=== PATIENT | female | born 1935 | race Caucasian/White ===

== ENCOUNTER → 2022-11-05 13:25 | Outpatient (BNVA) | payer MEDICARE, SELFPAY | PROVIDERS: Family Provider Family Medicine; PCP Family Medicine; Visit Provider Podiatrist Foot & Ankle Surgery | DX: L84 Corns and callosities (principal) | CPT/HCPCS: 99203 ==

== ENCOUNTER → 2023-08-12 14:20 | Outpatient (BNVA) | payer MEDICARE, SELFPAY | PROVIDERS: Family Provider Family Medicine; PCP Family Medicine; Visit Provider Podiatrist Foot & Ankle Surgery | DX: L84 Corns and callosities (principal) | CPT/HCPCS: 99213 ==

== ENCOUNTER → 2023-09-16 07:50 | Outpatient (BNVA) | payer MEDICARE, SELFPAY | PROVIDERS: Family Provider Family Medicine; PCP Family Medicine; Visit Provider Podiatrist Foot & Ankle Surgery | DX: L84 Corns and callosities (principal); M79.671 Pain in right foot | CPT/HCPCS: 11055; 99213 ==

== ENCOUNTER → 2023-11-04 09:45 | Outpatient (BNVA) | payer MEDICARE, SELFPAY | PROVIDERS: Family Provider Family Medicine; PCP Family Medicine; Visit Provider Podiatrist Foot & Ankle Surgery | DX: L84 Corns and callosities (principal) | CPT/HCPCS: 99213 ==

== ENCOUNTER → 2023-12-16 10:09 | Outpatient (BNVA) | payer MEDICARE, SELFPAY | PROVIDERS: Family Provider Family Medicine; PCP Family Medicine; Visit Provider Podiatrist Foot & Ankle Surgery | DX: L84 Corns and callosities | CPT/HCPCS: 99213 ==

== ENCOUNTER → 2023-12-31 10:20 | Outpatient (BNVA) | payer MEDICARE, SELFPAY | PROVIDERS: Family Provider Family Medicine; PCP Family Medicine; Visit Provider Obstetrics & Gynecology | DX: R93.89 Abnormal findings on diagnostic imaging of other specified body structures (principal); N88.8 Other specified noninflammatory disorders of cervix uteri | CPT/HCPCS: 76830 ==

== ENCOUNTER → 2024-01-07 13:57 | Outpatient (BNVA) | payer MEDICARE, SELFPAY | PROVIDERS: Family Provider Family Medicine; PCP Family Medicine; Visit Provider Obstetrics & Gynecology | DX: R93.89 Abnormal findings on diagnostic imaging of other specified body structures (principal) | CPT/HCPCS: 87624 ==

== ENCOUNTER → 2024-05-12 10:45 | Outpatient (BNVA) | payer MEDICARE, SELFPAY | PROVIDERS: Family Provider Family Medicine; PCP Family Medicine; Visit Provider Nurse Practitioner Family | DX: L82.1 Other seborrheic keratosis (principal); D22.5 Melanocytic nevi of trunk; L57.8 Other skin changes due to chronic exposure to nonionizing radiation; L81.4 Other melanin hyperpigmentation; Z85.828 Personal history of other malignant neoplasm of skin; L82.0 Inflamed seborrheic keratosis; L53.8 Other specified erythematous conditions; L29.89 Other pruritus; L57.0 Actinic keratosis | CPT/HCPCS: 17000; 17110; 99213 ==

== ENCOUNTER → 2024-07-15 09:29 | Outpatient (BNVA) | payer MEDICARE, SELFPAY | PROVIDERS: Family Provider Family Medicine; PCP Family Medicine; Visit Provider Podiatrist Foot & Ankle Surgery | DX: M79.671 Pain in right foot (principal); L84 Corns and callosities; M20.41 Other hammer toe(s) (acquired), right foot; M24.574 Contracture, right foot | CPT/HCPCS: 73630; 99213 ==

== ENCOUNTER 2024-08-11 10:13 | Observation (INO) | payer MEDICARE, SELFPAY ==
--- NOTE | 2024-08-10 11:19 | ECG_ITS ---
[facility]: 2024-08-10 Pat Name: Carmella Gauthier Department: Room: Gender: Female Bartender: : 1935 Requested By: Pillo Avila Order Number: [id number] Reading MD: Measurements Intervals [place] Rate: 55 P: 60 MS: 149 QRS: 21 QRSD: 85 T: 56 QT: 411 QTc: 394 Interpretive Statements SINUS BRADYCARDIA MINIMAL ST DEPRESSION [0.025+ mV ST DEPRESSION] [id number]
--- NOTE | 2024-08-10 11:47 | P.ANESASSM_ITS ---
Pre-Anesthetic Assessment Height/Weight: Height 5 ft 5 in Preop Diagnosis: uterine prolapse stage 4 Operation Date: 08/11/24 12:45 Proposed Procedures p Total Vaginal Hysterectomy 60166, 41622, 24366,N81.3, N81.10, N81.6(Not Applicable) - Dev Medrano MD s Salpingo-Oophorectomy (Vaginal)(Bilateral) - Dev Medrano MD s Colporrhaphy Anterior augmented with allograft(Not Applicable) - Dev Medrano MD s Posterior Repair Posterior Colporrhaphy(Not Applicable) - Dev Medrano MD s Sling Single Incision Midurethral Sling(Not Applicable) - Dev Medrano MD Was Beta Dario taken within 24 hours: N/A Was Clonidine taken within 24 hours: N/A Social No alcohol and No tobacco Quit smoking years and years ago Exam alert, oriented x 3, clear to auscultation bilaterally and regular rate & rhythm Airway Submandibular: within normal limits Cervical ROM: within normal limits Mallampati: Class II Dentition: false Anesthetic Plan ASA status: 2 Anesthesia: General Other: Patient has no prior anesthetic history NPO at midnight tonight Denies any cardiac or pulmonary issues Very healthy individual, stays active. Able to perform ADLs Labs are currently pending Plan for general anesthesia Medications/Allergies Home Medications ?Medication ?Instructions ?Recorded ?Confirmed ?Last Taken ?Type zolpidem 5 mg tablet (Ambien) 5 mg PO .bedtime PRN sle ep 08/03/19 08/10/24 08/09/24 History fluticasone propionate 50 2 spray intranasal DAILY PRN 09/16/23 08/10/24 08/09/24 History mcg/actuation nasal allergies spray,suspension Allergies Allergy/AdvReac Type Severity Reaction Status Date / Time No Known Allergies Allergy Verified 08/10/24 09:06 [facility] Anesthesia Medical History GERD (gastroesophageal reflux disease) Restless legs Family History Denies family history of Colon cancer Ovarian cancer Prostate cancer Diabetes Heart disease Hypercholesteremia Breast cancer Hypertension Uterine cancer Thyroid disease Stroke Social History Smoking and tobacco/nicotine status: former use of tobacco/nicotine Data Anesthesia Cardiac Studies: No Data to Display
[2024-08-10 11:48] LABS: Bilirubin Urine Negative (Negative); Blood Urine Negative (Negative); Glucose Urine UA Negative (Normal); Ketones Urine Negative (Negative); Leukocyte Esterase Urine 2+ (Negative); Nitrate Urine Negative (Negative); Protein Urine Negative (Negative); Specific Gravity, Urine 1.005 (1.005-1.030); Urine Appearance Cloudy (CLEAR); Urine Color Yellow (Yellow); Urobilinogen Urine 0.2 mg/dL (Negative)
[2024-08-10 11:53] LABS: Add Urine Microscopic? YES; Bacteria Urine Trace /hpf; Hyaline Casts Urine 1.21 /lpf; RBC Urine 0-2 /hpf (0-2); WBC Urine 0-5 /hpf (0-5)
[2024-08-10 12:01] LABS: Basophils % 0.8 %; Eosinophils # 0.1 10^3/uL (0.0-0.8); Eosinophils % 1.3 %; Hematocrit 39.8 % (36-47); Lymphocytes # 1.3 10^3/uL (0.8-4.8); Lymphocytes % 25.2 %; Mean Corpuscular HGB Conc 32.7 g/dL (30-55); Mean Platelet Volume 9.4 fL (7.4-10.4); Monocytes # 0.4 10^3/uL (0.2-0.9); Monocytes % 8.5 %; Neutrophils # 3.33 10^3/uL (1.8-7.7); Nucleated Red Blood Cells % 0 %; Platelet Count 256 10^3/cmm (157-399); Red Blood Count 4.19 10^6/uL (3.85-5.65); Red Cell Distribution Width 12.9 % (12.1-15.1)
[2024-08-10 12:23] LABS: Alanine Aminotransferase 14 U/L (0-33); Albumin Level 4.6 g/dL (3.5-5.2); Alkaline Phosphatase 99 U/L (35-105); Anion Gap 19.4 (5-19); Aspartate Amino Transferase 24 U/L (0-32); Blood Urea Nitrogen 14 mg/dL (8-23); Calcium 10.3 mg/dL (8.5-10.5); Carbon Dioxide 25 mmol/L (22-29); Chloride 99 mmol/L (98-107); Globulin 3.5 g/dL (1.3-4.6); Glucose 103 mg/dL (65-115); Osmolality Calculated 289 mOsm/kg (285-295); Potassium 4.4 mmol/L (3.5-5.1); Sodium 139 mmol/L (136-145); Total Bilirubin 0.4 mg/dL (0.15-1.2); Total Protein 8.1 g/dL (6.6-8.7)
[2024-08-10 12:27] LABS: Add Urine Culture? No
[2024-08-11] VITALS (15 sets, daily range): BP systolic 104–156; BP diastolic 45–80; PULSE 65–96; RESP 16–17; TEMP 36.4–36.8; O2SAT 92–99; BMI 21.1
[2024-08-11] MEDS: sodium chloride 0.9% 1,000 ML 30 ML IV (06:22)
[2024-08-11] MEDS: enoxaparin 30 mg/0.3 mL Syringe SUBCUT (06:23)
--- NOTE | 2024-08-11 06:25 | P.ANESUD_ITS ---
Pre-Anesthetic Update Pre-Anesthetic Assessment: Date of Surgery/Procedure: 08/11/24 Preop Erin gnosis: uterine prolapse stage 4 Proposed Procedure: Operation Date: 08/11/24 07:00 Proposed Procedures p Total Vaginal Hysterectomy 60569, 02187, 72034,N81.3, N81.10, N81.6(Not Applicable) - Dev Medrano MD s Salpingo-Oophorectomy (Vaginal)(Bilateral) - Dev Medrano MD s Colporrhaphy Anterior augmented with allograft(Not Applicable) - Dev Medrano MD s Posterior Repair Posterior Colporrhaphy(Not Applicable) - Dev Medrano MD s Sling Single Incision Midurethral Sling(Not Applicable) - Dev Medrano MD Changes from Pre-Anesthetic Assessment: No changes since patient was seen yesterday in preop clinic. NPO since yesterday evening. Plan for general anesthetic Last Intake: Intake Last Liquid Date 08/10/24 Last Liquid Time 22:00 Last Solid Date 08/10/24 Last Solid Time 22:00 Labs Last 48hrs: Short CBC 08/10/24 Range/Units 11:40 WBC 5.20 (3.29-11.43) 10^ 3/uL Hgb 13.00 (11.27-16.99) g/ dL Hct 39.8 (36-47) % MCV 95.0 (85-98) fl Plt Count 256 (157-399) 10^3/c mm Neut % (Auto) 64.0 % Neut # (Auto) 3.33 (1.8-7.7) 10^3/u L BMP 08/10/24 11:40 Sodium 139 Potassium 4.4 Chloride 99 Carbon Dioxide 25 BUN 14 Creatinine 0.7 Glucose 103 Calcium 10.3 Liver Function 08/10/24 Range/Units 11:40 Total Bilirubin 0.4 (0.15-1.2) mg/dL AST 24 (0-32) U/L ALT 14 (0-33) U/L Alkaline Phosphata se 99 (35-105) U/L Albumin 4.6 (3.5-5.2) g/dL Urine 08/10/24 Range/Units 11:20 Urine Color Yellow (Yellow) Urine Appearance Cloudy A (CLEAR) Urine pH 7.0 (5-7) Ur Specific Gravit y 1.005 (1.005-1.030) Urine Protein Negative (Negative) Urine Glucose (UA) Negative (Normal) Urine Ketones Negative (Negative) Urine Nitrate Negative (Negative) Urine Bilirubin Negative (Negative) Ur Leukocyte Nickie ase 2+ A (Negative) Urine RBC 0-2 (0-2) /hpf Urine WBC 0-5 (0-5) /hpf Blood Bank 08/10/24 11:40 Blood Type A Positive Rho(D) Type Rh positive Antibody Screen Negative Vitals: Temperature 98.1 F 08/11/24 06:08 Temperature Source Temporal Artery S can 08/11/24 06:08 Pulse Rate 65 08/11/24 06:08 Respiratory Rate 17 08/11/24 06:08 Blood Pressure 156/80 08/11/24 06:08 Blood Pressure Quin n 105 08/11/24 06:08 Pulse Oximetry 96 08/11/24 06:08 Oxygen Delivery Me thod Room Air 08/11/24 06:09 Cardiac Studies: No Data to Display
[2024-08-11] MEDS: ceFOXitin 2,000 mg SDV 2000 MG IVP (07:06)
--- NOTE | 2024-08-11 07:07 | W.PM.OPSUD ---
Surgery/Procedure H&P Update DATE OF PROCEDURE: August 11, 2024 DATE H&P PERFORMED: 08/10/24 H&P UPDATE INFORMATION: I have reviewed H&P completed within last 30 days, I have examined patient prior to procedure and No changes to prior documentation PREOP DIAGNOSIS: uterine prolapse stage 4 PLANNED PROCEDURE: Operation Date: 08/11/24 07:00 Proposed Procedures p Total Vaginal Hysterectomy 12848, 64032, 65996,N81.3, N81.10, N81.6(Not Applicable) - Dev Medrano MD s Salpingo-Oophorectomy (Vaginal)(Bilateral) - Dev Medrano MD s Colporrhaphy Anterior augmented with allograft(Not Applicable) - Dev Medrano MD s Posterior Repair Posterior Colporrhaphy(Not Applicable) - Dev Medrano MD s Sling Single Incision Midurethral Sling(Not Applicable) - Dev Medrano MD
[2024-08-11] MEDS: lidocaine-epi 2% PF 1:200,000 20 mL SDV 40 ML INJECTION (07:51)
--- NOTE | 2024-08-11 09:56 | P.BOP_ITS ---
Date of Procedure: 08/11/24 Surgeon: Dev Medrano MD Advertising Intern(s): Procedure(s) performed: Total vaginal hysterectomy, anterior colporrhaphy, mid urethral sling, posterior colporrhaphy, sacrospinous fixation, cystoscopy Findings of the procedure(s): Estimated blood loss: 100 Specimen(s) removed: Uterus Post-operative diagnosis: Status post TVH A&P colporrhaphy mid urethral sling and sacrospinous fixation
--- NOTE | 2024-08-11 09:57 | PM.OP ---
Operative Report Date of procedure: August 11, 2024 Pre-op diagnosis: Uterovaginal prolapse stage IV Procedure done: Total vaginal hysterectomy Anterior colporrhaphy Mid urethral sling Posterior colporrhaphy Sacrospinous fixation Cystoscopy Specimens removed/disposition: Uterus Surgeon: Dev Medrano MD Estimated blood loss (mL): 100 IV fluids (mL): 1,000 Urine output (mL): 200 Findings: Complete uterus prolapse Procedure: After informed consent and risks, benefits, indications and alternatives reviewed with the patient was taken to the operating room. The patient was placed in dorsal lithotomy position prepped, and draped in the usual sterile fashion. The pre-procedure timeout verifying the correct patient, procedure, site and side, could not requirements was performed and acknowledge by the OR team. A Wang catheter was placed. A Bookwalter vaginal retractor was placed into the vagina in usual manner visualize the cervix. Cervix was grasped with a single tooth tenaculum and circumferentially infiltrated with 2% lidocaine with epinephrine. Then cervix was circumferentially incised with bovie and the bladder was dissected off the pubovesical cervical fascia anteriorly with a sponge stick and Metzenbaum scissors. The anterior peritoneal reflection was identified and the anterior cul-de-sac was entered sharply with Metzenbaum scissors. The same procedure was performed posteriorly and a posterior colpotomy was made through the posterior cul-de-sac space without difficulty and the posterior blade of the Bookwalter vaginal retractor was advanced posteriorly into the cul-de-sac. At this time, the left and right uterosacral ligaments were isolated and ligated with 0 Vicryl. The LigaSure device was placed over the uterosacral ligaments on either side and was then used in a serial fashion up through the cardinal ligaments bilaterally cross-clamped, cut, and sealed with the LigaSure device. Finally, the uterine arteries were cross-clamped, cut, sealed and ligated with the LigaSure device. Hemostasis was assured. The broad ligaments were then serially clamped, sealed and cut with the LigaSure device on both sides. Excellent hemostasis was visualized. Both cornua were clamped, sealed and cut with the LigaSure device. Then the pedicles were then suture ligated with excellent hemostasis. The uterus was excised and submitted for pathologic evaluation. No other abnormalities were noted in the pelvic cavity. The peritoneum was then closed in a pursestring fashion with 0 Vicryl suture. The vaginal cuff angles were closed with [id number] #0 Vicryl suture on both sides and transfixed with the ipsilateral cardinal and uterosacral ligaments. The remainder of the vaginal cuff was closed with #0 Vicryl in a running locked fashion. At this time, instruments were removed from the vagina at hemostasis assured. The anterior vaginal mucosa beneath the midurethra was infiltrated with 2% lidocaine with epinephrine. A vertical midline incision was made beneath the midurethra, nearly 1.5 cm length. Careful submucosal dissection was performed bilaterally up to the interior portion of the inferior pubic ramus. The insertion of adductor longus tendon on the patient?s pubic ramus was identified as reference land amadou. Palpated the notch along the internal edge of ischiopubic ramus where the adductor longus tendon and the inferior pubic ramus meet. The Altis single incision sling (SIS) was selected. Then the needle of the SIS inserted aiming at the location of this notch. One of the integrated self-fixating tips place onto the needle by sliding it over the end of the needle. The needle/sling assembly was inserted toward the location of identified reference notch making sure that the flat of the handle is perpendicular to the desired path. The needle was tracked along the posterior surface of the ischiopubic ramus until the midline amadou on the mesh is approximately at the midline position under the urethra. The needle was removed and the same was repeated on the contralateral side until the appropriate sling tension under the urethra was achieved ensuring that the mesh lays flat. The needle was removed and vaginal incision was closed in a running interlocking fashion with 2-0 Vicryl. An anterior repair was then performed. The medial portion of the anterior vaginal wall was grasped with two Allis clamps and the mucosa was infiltrated with the previous 2% lidocaine with epinephrine solution. The Metzenbaum scissors were used to dissect and undermine a plane medially up to the point of reflexion anteriorly of the bladder. The vaginal mucosa was incised medially. This tissue was then grasped with Evelyne clamps and dissected away with a combination of sharp and blunt dissection on both sides. A suture of 2-0 vicryl was then used to connect the lateral pubovesical connective tissue on either side together in a series of bites that was repeated in two layers. The excess vaginal mucosa was trimmed and the incision repaired with a locked suture of 0 vicryl. A 2% lidocaine with epinephrine solution was infiltrated under the posterior vaginal mucosa midline and into the perineal body. An transverse incision was cut in the perineum. The posterior vaginal wall was opened vertically and midline up to the apex of the rectocele. The cut edges were held and splayed laterally with a series of Allis clamps. The open vaginal mucosa was then dissected laterally with a combination of sharp and blunt dissection, exposing the perirectal fascia. A finger is inserted through the incision in the posterior vaginal mucosa, dissecting out the rectovaginal space (RVS). The right rectal pillar (RRP) is identified. The rectal pillar can be bluntly perforated either with the finger and with the tip of a long Milagros clamp. A Brooks retractor is used for exposing the rectovaginal space in order to enter the pararectal space with retraction of the cardinal ligament, vagina, and rectum. Displacing the rectum to the left and the cardinal ligament and ureter anteriorly. A sponge dissector is used to bluntly dissect the sacrospinous ligament removing areolar tissue. The ischial spine was palpated directly, and a area approximately 2 cm medial to the spine was selected for insertion of the Anchorsure transvaginal sacrospinous fixation system. One end of the suture of Anchoresure system inserted through the sacrospinous ligament is placed through the muscular layer of the vagina. In a similar manner, the second suture is placed. The opposite end of the suture in the sacrospinous ligament is left free and held on a small hemostat. Then traction on this suture will draw the vaginal vault directly to the ligament, where a square knot affixes it to the sacrospinous ligament. After the quinton stich is tied the second safety stich is tied. Then the colporrhaphy/vaginal repair is carried out in routine fashion. The perirectal fascia was then reapproximated with interrupted #2-0 Vicryl sutures to draw the lateral folds together and tuck the rectocele back. Deep interrupted sutures of #0 Vicryl were used to reapproximate the fibers of the levator ani muscles. The excess vaginal mucosa was trimmed. The posterior vaginal wall was closed with a running locked #0 Vicryl to the hymenal tags. The superficial perineal muscles were closed with running unlocked #0 Vicryl and the perineal skin was closed with running subcuticular #2-0 Vicryl. Bludigo was given IV. Then the Wang catheter was removed and cystoscope was inserted. The bladder was filled with sterile water. Complete evaluation of the bladder mucosa was performed noting no lacerations, dimpling, tears, bleeding of the mucosa or muscular layers. Both ureteral orifices were identified. Prompt excretion of urine from both ureteral orifices was noted. Cystoscope was withdrawn. Wang catheter was then placed yielding clear ramón urine. A vaginal packing was placed and the patient was taken out of dorsal lithotomy position and awakened from the general anesthesia. The patient tolerated the procedure well and was taken to the PACU recovery room in a stable condition. Sponge, lap, needle and instruments counts were correct x3.
--- NOTE | 2024-08-11 10:28 | ANE.PACU2 ---
Inpatient post-anesthesia follow up: Airway intact: Yes Vital signs: Temperature 97.8 F Pulse Rate 88 Respiratory Rate 16 Blood Pressure 113/59 Pulse Oximetry 93 Oxygen Delivery Me thod Room Air Oxygen Flow Rate 6 Fraction of Inspir ed Oxygen Hydration adequate: Yes Nausea and vomiting: No Pain level: 1 Mental status: Baseline
[2024-08-11] MEDS: ketorolac 30 mg/mL INJ IVP ×3 (10:58→23:17)
[2024-08-11] MEDS: docusate sodium 100 mg Capsule PO (18:12)
[2024-08-11] MEDS: dextrose 5%-lactated ringers 1,000 ML 125 ML IV (20:19)
[2024-08-11] MEDS: sodium chloride 0.9% 500 ML IV (22:00)
[2024-08-12 05:20] VITALS: BP 94/48; PULSE 66; RESP 16; TEMP 37.3; O2SAT 96
--- NOTE | 2024-08-12 05:20 | PC.NURSE ---
packing removed at this time, packing intact
[2024-08-12] MEDS: sodium chloride 0.9% 500 ML IV (05:23)
[2024-08-12] MEDS: ketorolac 30 mg/mL INJ IVP (05:24)
[2024-08-12 05:25] LABS: Mean Corpuscular HGB Conc 31.9 g/dL (30-55); Mean Corpuscular Hemoglobin 30.9 pg (27-33); Mean Corpuscular Volume 97.1 fl (85-98); Mean Platelet Volume 9.1 fL (7.4-10.4); Platelet Count 152 10^3/cmm (157-399); Red Blood Count 2.78 10^6/uL (3.85-5.65); Red Cell Distribution Width 13.2 % (12.1-15.1); White Blood Count 7.87 10^3/uL (3.29-11.43)
[2024-08-12] MEDS: docusate sodium 100 mg Capsule PO (08:35)
[2024-08-12 08:37] VITALS: BP 113/54; PULSE 63; RESP 16; TEMP 36.6; O2SAT 97
--- NOTE | 2024-08-12 08:59 | PC.NURSE ---
PVR showed 0ml of urine in bladder during bladder scan.
--- NOTE | 2024-08-12 12:50 | PM.OBGYDC ---
Discharge Providers PUBLIC INTERVIEWER Date of Admission: 08/11/24 10:13 Date of Discharge: 08/12/24 Attending Provider at Admission: Dev Medrano MD Attending Provider at Discharge: Dev Medrano MD Primary Care Provider: Erick Ortega MD Reason for Visit Reason for Visit: N81.10 Hospital Course Hospital Course Mrs. Villalobos 89-year-old female with history of complete uterovaginal prolapse, admitted for planned total vaginal hysterectomy, anterior colporrhaphy, mid urethral sling, posterior colporrhaphy, and sacrospinous fixation. The procedures were performed without complication. Overnight observation was uneventful. She is afebrile and hemodynamically stable postoperative day 1. Tolerating diet well. Ambulating without difficulty. No pain. PVR within normal limits. She was counseled regarding pelvic rest for 6 weeks (no sex, no tampons, no vaginal douches). Return to the emergency room if any fever, increased bleeding or pain. She was also advised on limitation of heavy weight lifting no greater than 10 pounds. Physical Exam Narrative: GA: Alert and oriented ?3. HEENT: WNL. Heart: Regular rate and rhythm. Lungs: Clear to auscultation bilaterally. Abdomen: Bowel sounds present, nontender. ELECTRICAL ESTIMATOR: spotting bleeding. Extremities: No edema, no cyanosis, no calves pain. Urinary Catheter Management: Wang: Cath Placed During This Visit: yes, but has since been removed by the nurse Reason for Continuing Indwelling Catheter: Decision to DC Catheter Urinary Catheter Date of Insertion: 08/11/24 Urinary Catheter Time of Insertion: 07:35 Date Urinary Catheter Removed: 08/12/24 Time Urinary Catheter Discontinued: 07:15 History History History 3 Term 2 1 Miscarriages/Ectopic 0 Living Children 2 Discharge Data Studies Completed and Pending Pending at discharge Category Date Time Status Pathology: Surgical [PTH] Routine Pth 08/11/24 08:39 Received Laboratory Results WBC 7.87 10^3/uL (3.29-11.43) 08/12/24 05:18 RBC 2.78 10^6/uL (3.85-5.65) L 08/12/24 05:18 Hgb 8.60 g/dL (11.27-16.99) L 08/12/24 05:18 Hct 27.0 % (36-47) L 08/12/24 05:18 MCV 97.1 fl (85-98) 08/12/24 05:18 MCH 30.9 pg (27-33) 08/12/24 05:18 MCHC 31.9 g/dL (30-55) 08/12/24 05:18 RDW 13.2 % (12.1-15.1) 08/12/24 05:18 Plt Count 152 10^3/cmm (157-399) L 08/12/24 05:18 MPV 9.1 fL (7.4-10.4) 08/12/24 05:18 Neut % (Auto) 64.0 % 08/10/24 11:40 Lymph % (Auto) 25.2 % 08/10/24 11:40 [place] % (Auto) 8.5 % 08/10/24 11:40 Eos % (Auto) 1.3 % 08/10/24 11:40 Baso % (Auto) 0.8 % 08/10/24 11:40 Neut # (Auto) 3.33 10^3/uL (1.8-7.7) 08/10/24 11:40 Lymph # (Auto) 1.3 10^3/uL (0.8-4.8) 08/10/24 11:40 [place] # (Auto) 0.4 10^3/uL (0.2-0.9) 08/10/24 11:40 Eos # (Auto) 0.1 10^3/uL (0.0-0.8) 08/10/24 11:40 Baso # (Auto) 0.0 10^3/uL (0.0-0.1) 08/10/24 11:40 Nucleated RBC % (auto) 0 % 08/10/24 11:40 Nucleated RBCs # 0.0 /100WBC 08/10/24 11:40 Sodium 139 mmol/L (136-145) 08/10/24 11:40 Potassium 4.4 mmol/L (3.5-5.1) 08/10/24 11:40 Chloride 99 mmol/L (98-107) 08/10/24 11:40 Carbon Dioxide 25 mmol/L (22-29) 08/10/24 11:40 Anion Gap 19.4 (5-19) H 08/10/24 11:40 BUN 14 mg/dL (8-23) 08/10/24 11:40 Creatinine 0.7 mg/dL (0.5-0.9) 08/10/24 11:40 GFR Calculation Not Reportable 08/10/24 11:40 Glucose 103 mg/dL (65-115) 08/10/24 11:40 Calculated Osmolality 289 mOsm/kg (285-295) 08/10/24 11:40 Calcium 10.3 mg/dL (8.5-10.5) 08/10/24 11:40 Total Bilirubin 0.4 mg/dL (0.15-1.2) 08/10/24 11:40 AST 24 U/L (0-32) 08/10/24 11:40 ALT 14 U/L (0-33) 08/10/24 11:40 Alkaline Phosphatase 99 U/L (35-105) 08/10/24 11:40 Total Protein 8.1 g/dL (6.6-8.7) 08/10/24 11:40 Albumin 4.6 g/dL (3.5-5.2) 08/10/24 11:40 Globulin 3.5 g/dL (1.3-4.6) 08/10/24 11:40 Urine Color Yellow (Yellow) 08/10/24 11:20 Urine Appearance Cloudy (CLEAR) A 08/10/24 11:20 Urine pH 7.0 (5-7) 08/10/24 11:20 Ur Specific [place] 1.005 (1.005-1.030) 08/10/24 11:20 Urine Protein Negative (Negative) 08/10/24 11:20 Urine Glucose (UA) Negative (Normal) 08/10/24 11:20 Urine Ketones Negative (Negative) 08/10/24 11:20 Urine Blood Negative (Negative) 08/10/24 11:20 Urine Nitrate Negative (Negative) 08/10/24 11:20 Urine Bilirubin Negative (Negative) 08/10/24 11:20 Urine Urobilinogen 0.2 mg/dL (Negative) 08/10/24 11:20 Ur Leukocyte Esterase 2+ (Negative) A 08/10/24 11:20 Urine RBC 0-2 /hpf (0-2) 08/10/24 11:20 Urine WBC 0-5 /hpf (0-5) 08/10/24 11:20 Ur Squamous Epith Cells 6-10 /hpf (0-5) 08/10/24 11:20 Amorphous Sediment Not Reportable 08/10/24 11:20 Urine Bacteria Trace /hpf (NONE) 08/10/24 11:20 Hyaline Casts 1.21 /lpf 08/10/24 11:20 Blood Type A Positive 08/10/24 11:40 Rho(D) Type Rh positive 08/10/24 11:40 Antibody Screen Negative 08/10/24 11:40 Vitals Last Vital Signs Temp 97.9 F 08/12/24 08:37 Pulse 63 08/12/24 08:37 Resp 16 08/12/24 08:37 BP 113/54 08/12/24 08:37 Pulse Ox 97 08/12/24 08:37 O2 Del Method Room Air 08/12/24 08:37 O2 Flow Rate 6 08/11/24 10:03 Results Labs OB ([facility]): Blood Type A Positive 08/10/24 Antibody Screen Negative 08/10/24 Hct 27.0 % (36-47) L 08/12/24 Hgb 8.60 g/dL (11.27-16.99) L 08/12/24 Rho(D) Type Rh positive 08/10/24 Plt Count 152 10^3/cmm (157-399) L 08/12/24 Pap Smear Interpret See note 01/07/24 Discharge Plan Discharge Patient Disposition: Home Condition: Stable Prescriptions: New acetaminophen 325 mg capsule 325 mg PO Q4H PRN (Reason: fever or pain) Qty: 60 0RF docusate sodium [Colace] 100 mg capsule 100 mg PO BID Qty: 60 0RF ferrous sulfate [Iron (ferrous sulfate)] 325 mg (65 mg iron) tablet 325 mg PO BID Qty: 60 0RF ibuprofen 800 mg tablet 800 mg PO TID PRN (Reason: pain) Qty: 60 0RF nitrofurantoin macrocrystal 100 mg capsule 100 mg PO BID 7 Days Qty: 14 0RF Rx Instructions: must administer with a meal/food oxybutynin chloride 5 mg tablet extended release 24hr 5 mg PO DAILY Qty: 30 0RF Continued zolpidem [Ambien] 5 mg tablet 5 mg PO .bedtime PRN (Reason: sleep ) Rx Instructions: pt states she takes 1/2 a pill at bedtime fluticasone propionate 50 mcg/actuation spray,suspension 2 spray intranasal DAILY PRN (Reason: allergies) Discharge Orders: Discharge Order (Routine); Ordered 08/12/24 Ordered By: Dev Medrano Referrals: Miri Chi APN, WHNP [Nurse Practitioner] - 08/27/24 10:00 am Dev Medrano MD [Physician] - 6 Weeks Discharge Diet: GI Soft and Soft Mechanical Discharge Activity: Limit activity as instructed Patient Instructions: Urinary Bladder Suspension (DC), Acute Wound Care (DC), Opioid Safety (DC), Hysterectomy (DC), Anterior Vaginal Repair (DC), Posterior Vaginal Repair (DC), OB Discharge Report, OB Food/Drug Interaction Guide, Opioid Safety, Post Anesthesia Care, Vaginal Hysterectomy (GEN), Posterior Vaginal Repair (GEN), Anterior Vaginal Repair (GEN), Bladder Sling for Women (GEN) Activity Restrictions/Additional Instructions: 1. Please call [facility] on next working day to make your post-operative appointment in 2 weeks. 2. Please stay home until you come back to the clinic on first post-hospatilization check up. 3. Please follow instructions on your medications CAREFULLY. 4. If you have abdominal incision, do not cover it unless dressing is necessary because of drainage. OK to shower, but avoid bath. Leave steri-strips until they fall off. If they are still on one week after surgery, you may remove them. 5. If you had vaginal surgery or vaginal repair, Dr. Medrano may instruct you to take SITZ bath. 6. Yellow, blood tinged odorous vaginal discharge is usually normal after hysterectomy or vaginal surgeries. 7. No SEXUAL INTERCOURSE, tampons, or douches until you are completely released from the post-operative care. 8. Avoid constipation by eating right and maybe using some Metamucil or Milk of Magnesia. 9. All prescription refills are given during the working hours. Please do no wait till it runs out. Call the clinic at [phone] before your medication runs out. The clinic will get in touch with your doctor to prescribe medications if necessary. 10. Please remain within 40 mile radius from our hospital because emergencies do happen now and then during the post-operative period. 11. If you have stairs at home, take one step at a time slowly and minimize the number of trips. It helps to stay in one floor for the next few days. No lifting except what you can lift by one hand until you are released from the post-operative care. 12. Driving is discouraged until you are well healed. It may be 3-4 weeks before you feel strong enough to drive. You should be able to turn and look through the rear window without pain and you should be able to push the brake pedal very hard without pain before you drive. No fast rules, but SAFETY should be your primary concern. DO NOT drive if you are on sedating medications such as narcotics. 13. Call the clinic (during working hours) to make urgent appointment or go to the Emergency room, if any of the following occurs: i. Vaginal bleeding becomes heavy, more than a period. ii. Incision becomes red and sore, or drains pus. iii. Your TEMPERATURE is over 100.4F or you have chill. iv. IV site becomes red and swollen (a little ``knot?? is usually OK) v. Persistent nausea and vomiting vi. Persistent constipation or diarrhea vii. Rash or allergic reaction to medications. Discharge Attestations PUBLIC INTERVIEWER Time Spent in Discharge Care*: greater than 30 min Coding Level of Care Code Acute Code for Chg Fwd
[2024-08-12 13:30] VITALS: BP 150/76; PULSE 83; RESP 17; TEMP 36.6; O2SAT 96
== END 2024-08-12 13:30 | disposition home or self-care (01) ==
LOC: OBGYN 10:13
PROVIDERS: Admitting Provider Obstetrics & Gynecology; PCP Family Medicine; Visit Provider Obstetrics & Gynecology
PROC: (CPT 57282; principal; 2024-08-11 07:00)
PROC: 0JQC0ZZ Repair Pelvic Region Subcutaneous Tissue and Fascia, Open Approach (ICD-10-PCS; CPT 57240; 2024-08-11 07:00)
PROC: (CPT 57250; 2024-08-11 07:00)
PROC: (CPT 57288; 2024-08-11 07:00)
PROC: 0TJB8ZZ Inspection of Bladder, Via Natural or Artificial Opening Endoscopic (ICD-10-PCS; CPT 52000; 2024-08-11 07:00)
DX: N81.3 Complete uterovaginal prolapse (principal); Z79.899 Other long term (current) drug therapy; K21.9 Gastro-esophageal reflux disease without esophagitis; G25.81 Restless legs syndrome; Z87.891 Personal history of nicotine dependence; N72 Inflammatory disease of cervix uteri; N88.8 Other specified noninflammatory disorders of cervix uteri; I70.8 Atherosclerosis of other arteries
CPT/HCPCS: 57282; 58260; 57260; 57288; 36415; 80053; 81001; 85025; 85027; 86850; 86900; 88307; 93005; 96374; 96376; A4216; C1713; G0378; J0694; J1100; J1200; J1650; J1885; J2371; J2405; J2704; J3010; J3490; J7030; J7040; J7121

== ENCOUNTER → 2024-08-27 11:06 | Outpatient (BNVA) | payer MEDICARE, SELFPAY | PROVIDERS: PCP Family Medicine; Visit Provider Nurse Practitioner Women's Health | DX: R30.0 Dysuria (principal); Z48.816 Encounter for surgical aftercare following surgery on the genitourinary system | CPT/HCPCS: 84315; 87086 ==

== ENCOUNTER → 2024-09-17 09:26 | Outpatient (BNVA) | payer MEDICARE, SELFPAY | PROVIDERS: PCP Family Medicine; Visit Provider Podiatrist Foot & Ankle Surgery | DX: M24.574 Contracture, right foot (principal); M20.41 Other hammer toe(s) (acquired), right foot; L84 Corns and callosities; M79.671 Pain in right foot | CPT/HCPCS: 28010; 28011; 99214; J9999 ==

== ENCOUNTER → 2024-10-28 11:29 | Outpatient (BNVA) | payer MEDICARE, SELFPAY | PROVIDERS: PCP Family Medicine; Visit Provider Podiatrist Foot & Ankle Surgery | DX: M20.41 Other hammer toe(s) (acquired), right foot (principal); M24.574 Contracture, right foot; M79.671 Pain in right foot; L84 Corns and callosities; Q82.8 Other specified congenital malformations of skin | CPT/HCPCS: 99213 ==

== ENCOUNTER → 2024-12-09 10:58 | Outpatient (BNVA) | payer MEDICARE, SELFPAY | PROVIDERS: PCP Family Medicine; Visit Provider Podiatrist Foot & Ankle Surgery | DX: M20.41 Other hammer toe(s) (acquired), right foot (principal); M24.574 Contracture, right foot; L84 Corns and callosities | CPT/HCPCS: 99213 ==

== ENCOUNTER 2025-03-10 10:14 | Outpatient (CLI) | payer MEDICARE, SELFPAY ==
--- NOTE | 2025-03-10 10:18 | MR_ITS ---
WS: [id number] MRI HEAD WITH CONTRAST WITH ATTENTION TO THE INTERNAL AUDITORY CANALS TECHNIQUE: Sagittal T1, T2 axial, T2 axial flair, axial susceptibility weighted imaging, axial diffusion weighted images, and coronal T2 images were obtained. Pre and post T1 axial and post T1 coronal images. ADC and FSPGR images. Post gadolinium images with attention to the internal auditory canals. Axial fiesta imaging. 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 FINDINGS: Proximal 7th and 8th cranial nerves are normal in appearance. No evidence of enhancing IAC or CP angle mass. Normal trigeminal nerve root entry zones. No restricted diffusion to suggest acute ischemia. No hemosiderin. Mild small vessel changes. Moderate parenchymal volume loss. Normal vascular flow voids at the skull base. No abnormal gadolinium enhancement. Normal dural venous sinuses. Incidental venous angioma LEFT frontal lobe. MR/MR iac's wo/w con* [id number] IMPRESSION: 1. No evidence of restricted diffusion to suggest acute ischemia. 2. Proximal 7th and 8th cranial nerves are normal in appearance. No evidence o f enhancing IAC or CP angle mass. Normal trigeminal nerve root entry zones. 3. Paranasal sinuses are well aerated. 4. Slight mucosal thickening LEFT mastoid tip.
[2025-03-10] MEDS: gadobenate dimeglumine 20 mL vial IV (11:07)
== END 2025-03-10 10:15 | disposition home or self-care (01) ==
LOC: RAD 10:15
PROVIDERS: PCP Family Medicine; Visit Provider Nurse Practitioner Family
DX: H90.A32 Mixed conductive and sensorineural hearing loss, unilateral, left ear with restricted hearing on the contralateral side (principal)
CPT/HCPCS: 70553